=== PATIENT | female | born 1965 | race American Indian/Alaskan Native ===

== ENCOUNTER 2017-10-14 11:00 | Outpatient (CLI) | payer MEDICARE ==
--- NOTE | 2017-10-14 11:49 | XRay Report ---
LEFT ANKLE, 3 views: History: left ankle pain. Bone mineralization is normal. No acute osseous abnormality or joint pathology is identified. The soft tissues are unremarkable. IMPRESSION: Normal study.
--- NOTE | 2017-10-14 11:50 | XRay Report ---
RIGHT KNEE, 2 views: History: Right knee pain. No comparison. There is normal bone mineralization. Moderate osteoarthritic changes are identified in the medial compartment and patellofemoral space. Small joint effusion. No evidence for fracture, bone lesion or large osteochondral defect. IMPRESSION: Moderate bicompartmental osteoarthritic changes. Small joint effusion.
== END 2017-10-14 11:01 | disposition home or self-care (01) ==
LOC: XRAY 11:00
PROVIDERS: ATTEND Orthopaedic Surgery
DX: M17.11 Unilateral primary osteoarthritis, right knee (principal); M25.461 Effusion, right knee; M25.572 Pain in left ankle and joints of left foot